=== PATIENT | male | born 1950 | race African-American/Black ===

== ENCOUNTER 2017-12-11 11:00 | Inpatient (IN) | payer OTHER ==
--- NOTE | 2017-12-11 11:23 | PDOC ---
Attending Attestation - [facility] HPI: 12/11/17 12:05 The patient is a 67 year old male coming from [place], with a significant past medical history of hypertension, diabetes, end stage renal disease (dialysis Tuesday,, and Tuesday), and hyperlipidemia, who presents to the emergency department for evaluation of dizziness and right sided numbness. The patient reports a 1 day history of dizziness and right sided facial numbness. The patient describes the right sided facial numbness radiating down to right side of the neck and right arm. He reports an associated symptom of generalized weakness and urinary incontinence. The patient states he felt very unsteady and wobbly going up the stairs yesterday and required his wifes assistance, which prompted him to visit the emergency department today, for further evaluation. He denies any previous experience of the aforementioned dizziness. The patient reports one episode of diarrhea (Tuesday), chills, and positional lightheadedness. Of note, the patient reports having a liter dialyzed with his treatment on Tuesday, and states that he usually has more dialyzed. The patient denies chest pain, focal weakness, shortness of breath, headache, fever, nausea, vomiting, and constipation. Allergies: NKDA. Social History: Former smoker. No reported alcohol or drug use. Surgical History: Tonsillectomy. - Physicial Exam PE: Vitals: Triage Vital signs reviewed General Appearance: no acute distress, well nourished well developed, Head: Atraumatic, normocephalic Eyes: Pupils equal reactive round, extraocular movement intact Neck: Supple. Chest Wall: Nontender Cardiac: Regular rate and rhythm, no murmurs, no rubs, no gallops, Lungs: Clear to auscultation bilateral, good air movement bilaterally, Abdomen: Soft, nondistended, nontender to palpation Extremities: Full range of motion to all extremities, no cyanosis, clubbing, or edema Skin: Warm and dry, no rashes or lesions, no petechiae Neuro: AOX3; Cranial Nerves 2-12 grossly c intact, Strength intact to all extremities, Sensation intact to all extremities. Psych: normal mood, normal affect. - Medical Decision Making The patient is a 67 year old male with a significant past medical history of hypertension, diabetes, end stage renal disease (dialysis Tuesday,, and Tuesday), and hyperlipidemia who presents to the emergency department for evaluation of dizziness and right sided numbness. Plan: Labs ECG Head CT Chest X-Ray UA <Yarelis Torres - Last Filed: 12/11/17 13:53> - Resident Resident Name: Luis Magallon - ED Attending Attestation I have performed the following: I have examined & evaluated the patient, The case was reviewed & discussed with the resident, I agree w/resident's findings & plan, Exceptions are as noted - Medical Decision Making Hypotension with lightheadedness. Status post patient's dialysis on Tuesday he also exhibited diarrhea Differential diagnosis includes hypovolemia secondary to too much fluid being removed during dialysis, volume loss secondary to diarrhea, possible infection Sepsis workup initiated Reevaluation patient with elevated lactic acid differential still remains infection versus volume loss Given the patient is high risk dialysis patient will cover with broad-spectrum antibiotics 500 mL fluid boluses with frequent rechecks of patient's respiratory status. Nephrology has been consult to Limited to medicine for further management. <Shoaib Read - Last Filed: 12/11/17 14:09> Heart Score/ECG Review - ECG Impressions Comment:: 12/11/17 14:08 EKG performed at 1256. Demonstrates normal sinus rhythm 79 bpm. OK 182. QRS 112. QTc 433. No ST elevations no T-wave inversions questionable Q wave in V1 and V2 septal infarct age indeterminate Interpreted by me. <Shoaib Read - Last Filed: 12/11/17 14:09> Attestations - Attestations Documentation prepared by Yarelis Torres, acting as medical doctor md/medical director for Shoaib Read MD. <Yarelis Torres - Last Filed: 12/11/17 13:53>
[2017-12-11] MEDS ORDERED: SODIUM CHLORIDE 500 ML IV STA ×2 (11:45→13:22)
[2017-12-11 12:06] LABS: VENOUS PC02 60.7 mmHg (38-52); VENOUS PH 7.33 (7.32-7.42); VENOUS PO2 19.7 mmHg (28-48)
[2017-12-11 12:08] LABS: BASO % 0.8 % (0-2.0); EOS % 3.2 % (0-4.5); HEMATOCRIT 37.5 % (35.4-49); HEMOGLOBIN 12.3 GM/dL (11.7-16.9); LYMPH % 12.3 % (8-40); MCH 29.9 pg (25.7-33.7); MCHC 32.7 g/dl (32.0-35.9); MEAN CELL VOLUME 91.4 fl (80-96); MEAN PLT VOLUME 7.9 fl (7.5-11.1); MONO % 11.9 % (3.8-10.2); NEUT % 71.8 % (42.8-82.8); PLATELET COUNT 225 K/MM3 (134-434); RDW 19.5 % (11.9-15.9)
--- NOTE | 2017-12-11 12:11 | PDOC ---
History of Present Illness - General Chief Complaint: CVA/TIA Stated Complaint: NUMBNESS Time Seen by Provider: 12/11/17 11:21 History Source: Patient Exam Limitations: No Limitations - History of Present Illness Initial Comments: 12/11/17 12:06 Patient is a 67M with history of DM, CHF, HTN, HLD, ESRD on TThS dialysis here today complaining of weakness and parathesias on the right side of his face, neck, and torso starting 1 day ago. Patient states that his last dialysis was Tuesday because he was planning on being gone for the weekend. He reports episdodes of diarrhea. Denies fevers, chills, nausea, vomiting. Denies abdominal pain, chest pain and shortness of breath. Patient denies any focal weakness. Denies history of prior MIs, but does endorse a history of CHF admission. Patient currently makes no urine. Past History - Past Medical History Allergies/Adverse Reactions: Allergies Allergy/AdvReac Type Severity Reaction Status Date / Time No Known Allergies Allergy Verified 12/11/17 11:06 Home Medications: Ambulatory Orders Aspirin [Aspirin EC] 81 mg PO DAILY 12/11/17 B Complex W-C No.20/Folic Acid [Nephrocaps Softgel] 1 mg PO 12/11/17 Calcium Acetate 667 mg PO TID 12/11/17 Docusate Sodium 100 mg PO BID 12/11/17 Labetalol HCl [Normodyne -] 600 mg PO BID 12/11/17 Lisinopril 10 mg PO 12/11/17 Omeprazole 20 mg PO DAILY 12/11/17 Saxagliptin HCl [Onglyza] 2.5 mg PO DAILY 12/11/17 COPD: No Diabetes: Yes Dialysis: Yes () HTN: Yes Hypercholesterolemia: Yes - Suicide/Smoking/Psychosocial Hx Smoking History: Former smoker Have you smoked in the past 12 months: No Information on smoking cessation initiated: No Review of Systems - Review of Systems Comments:: 12/11/17 12:08 GENERAL/CONSTITUTIONAL: No fever or chills. +weakness. HEAD, EYES, EARS, NOSE AND THROAT: No change in vision. No sore throat. CARDIOVASCULAR: No chest pain or shortness of breath RESPIRATORY: No cough, wheezing, or hemoptysis. GASTROINTESTINAL: No nausea, vomiting, constipation. +diarrhea GENITOURINARY: No dysuria, frequency, or change in urination. MUSCULOSKELETAL: No joint or muscle swelling or pain. No neck or back pain. SKIN: No rash NEUROLOGIC: No headache, vertigo, loss of consciousness, or change in strength/ sensation. ENDOCRINE: No increased thirst. No abnormal weight change HEMATOLOGIC/LYMPHATIC: No anemia, easy bleeding, or history of blood clots. ALLERGIC/IMMUNOLOGIC: No hives or skin allergy. *Physical Exam - Vital Signs Last Vital Signs Temp Pulse Resp BP Pulse Ox 97.9 F 85 19 70/41 97 12/11/17 11:06 12/11/17 11:06 12/11/17 11:12/11/17 11:12/11/17 11:06 - Physical Exam Comments: 12/11/17 12:09 GENERAL: Awake, alert, and fully oriented, in no acute distress HEAD: No signs of trauma, normocephalic, atraumatic EYES: PERRLA, EOMI, sclera anicteric, conjunctiva clear ENT: Auricles normal inspection, hearing grossly normal, nares patent, oropharynx clear without exudates. Moist mucosa NECK: Normal ROM, supple, no lymphadenopathy, JVD, or masses LUNGS: No distress, speaks full sentences, clear to auscultation bilaterally HEART: Regular rate and rhythm, normal S1 and S2, no murmurs, rubs or gallops, peripheral pulses normal and equal bilaterally. ABDOMEN: Soft, nontender, normoactive bowel sounds. No guarding, no rebound. No masses EXTREMITIES: Normal inspection, Normal range of motion, no edema. No clubbing or cyanosis. NEUROLOGICAL: Cranial nerves II through XII grossly intact. Normal speech, no focal sensorimotor deficits SKIN: Warm, Dry, normal turgor, no rashes or lesions noted. ED Treatment Course - LABORATORY CBC & Chemistry Diagram: 12/12/17 07:20 12/12/17 07:20 Medical Decision Making - Medical Decision Making 12/11/17 12:09 Patient is 67M with history of DM, HTN, HLD, ESRD on TThS dialysis, CHF here today with weakness and parathesias. BP 70/40. No signs of fluid overload on exam, patient may be hypovolemic. Also considering occult infection, stroke, [place] , and CHF as etiologies of weakness with hypotension. Septic workup initiated, fingerstick ordered, will also do head CT. 500cc fluid given. 12/11/17 13:31 Laboratory Tests 12/11/17 12/11/17 12/11/17 11:45 11:45 11:45 WBC 6.0 Hgb 12.3 Plt Count 225 BUN 55 H Creatinine 13.5 H* Creat Clearance w eGFR 3.68 Random Glucose 197 H Troponin I < 0.02 CBC normal. BUN/Cr consistent with dialysis. Troponin undetectable. Patient feels a little better. BPs improved to 88/55 systolic. Will give additional 500cc and re-evaluate. Suspect patient is volume down. 12/11/17 13:39 EKG shows normal sinus rhythm with rate of 79. No st elevations/depressions. Normal t wave morphology. Normal intervals Lactate 2.4, will antibiose for possible septicemia. Will admit. *DC/Admit/Observation/Transfer Diagnosis at time of Disposition: Hypotension - Discharge Dispostion Condition at time of disposition: Stable Decision to Admit order: Yes - Referrals - Patient Instructions - Post Discharge Activity
[2017-12-11 12:29] LABS: INR 1.02 (0.82-1.09); PROTHROMBIN TIME (PATIENT) 11.5 SEC (9.7-13.0)
[2017-12-11 12:32] LABS: ACTIVATED PTT 25.1 SECONDS (25.2-36.5)
[2017-12-11 12:38] LABS: ALBUMIN 3.9 g/dl (3.4-5.0); ALK PHOS 73 U/L (45-117); ANION GAP 11 (8-16); BILIRUBIN,TOTAL 0.4 mg/dL (0.2-1.0); BLOOD UREA NITROGEN 55 mg/dL (7-18); CALCIUM 8.5 mg/dL (8.5-10.1); CHLORIDE 94 mmol/L (98-107); CO2 32 mmol/L (21-32); GLUCOSE,RANDOM 197 mg/dL (74-106); POTASSIUM 4.8 mmol/L (3.5-5.1); SGOT/AST 45 U/L (15-37); SGPT/ALT 53 U/L (12-78); SODIUM 137 mmol/L (136-145); TOT PROT 8.3 g/dl (6.4-8.2)
[2017-12-11 12:49] LABS: CREATININE 13.5 mg/dL (0.7-1.3)
[2017-12-11] MEDS ORDERED: PIPERACILLIN/TAZOB 3.375 GM 3.375 GM in DEXTROSE 5%-WATER - 50 ML IVPB ONE (13:45)
[2017-12-11] MEDS ORDERED: PIPERACILLIN/TAZOB 3.375 GM 3.375 GM/50 ML BAG IVPB ONE (13:57)
[2017-12-11] MEDS ORDERED: VANCOMYCIN 1 GRAM (PRE-DOCKED) 1,000 MG/250 ML BAG IVPB ONE (13:57)
[2017-12-11] MEDS: VANCOMYCIN 1,000 MG in DEXTROSE 5%-WATER - 250 ML IVPB SCH (14:05)
--- NOTE | 2017-12-11 16:02 | HP ---
CHIEF COMPLAINT: Unsteady gait PCP: Charlie HISTORY OF PRESENT ILLNESS: 67 year-old male with a significant PMH of HTN, HLD, NIDDM, and ESRD on HD (T, Th, Sat). Patient resides in [place], [place] and came to [place] on Tuesday to attend a wedding. The patient normally has HD on Saturdays but because of his travel plans, he was dialyzed Tuesday morning. 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 Several hours later he had several episodes of diarrhea. On Tuesday morning he ate breakfast at his hotel and when he stood up after eating he felt unsteady on his feet. His had to assist him to get back to the room. He went to the wedding that evening and felt unsteady the entire time. When the symptoms were still present today, patient came to the ED. He was hypotensive on arrival and given IV fluids. Patient states that accompanying his feeling of unsteadiness has been a "sensation" that extends from the right side of his scalp, down the right side of the neck, and extending to the right side of the chest and abdomen. He cannot describe this sensation: it is neither pain nor numbness nor tingling. There is no muscle weakness, dizziness or lightheadedness. He has not experienced vision changes. 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 He cannot recall any bites this growing season. He denies any rashes. He denies joint pain. He did have some pain in his right bicep about 2-3 weeks ago and went to see a health care provider who prescribed gabapentin. Patient states he has not felt right since taking gabapentin. He has felt shaky and anxious on the drug. He takes one dose on HD days, last dose Tuesday night. 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 Smoking: former Alcohol: no Drugs: no Family History: Allergies No Known Allergies Allergy (Verified 12/11/17 11:06) HOME MEDICATIONS: Home Medications Medication Instructions Recorded Aspirin [Aspirin EC] 81 mg PO DAILY 12/11/17 B Complex W-C No.20/Folic Acid 1 mg PO 12/11/17 [Nephrocaps Softgel] Calcium Acetate 667 mg PO TID 12/11/17 Docusate Sodium 100 mg PO BID 12/11/17 Labetalol HCl [Normodyne -] 600 mg PO BID 12/11/17 Lisinopril 10 mg PO 12/11/17 Omeprazole 20 mg PO DAILY 12/11/17 Saxagliptin HCl [Onglyza] 2.5 mg PO DAILY 12/11/17 REVIEW OF SYSTEMS CONSTITUTIONAL: Absent: diaphoresis, malaise, loss of appetite, weight change HEENT: Absent: rhinorrhea, nasal congestion, throat pain, throat swelling, difficulty swallowing, mouth swelling, ear pain, eye pain, visual changes CARDIOVASCULAR: Absent: chest pain, syncope, palpitations, irregular heart rate, lightheadedness , peripheral edema RESPIRATORY: Absent: cough, shortness of breath, dyspnea with exertion, orthopnea, wheezing, stridor, hemoptysis GASTROINTESTINAL: Absent: abdominal pain, abdominal distension, nausea, vomiting, diarrhea, constipation, melena, hematochezia GENITOURINARY: Absent: dysuria, frequency, urgency, hesitancy, hematuria, flank pain, genital pain MUSCULOSKELETAL: Absent: myalgia, arthralgia, joint swelling, back pain, neck pain SKIN: Absent: rash, itching, pallor HEMATOLOGIC/IMMUNOLOGIC: Absent: easy bleeding, easy bruising, lymphadenopathy, frequent infections ENDOCRINE: Absent: unexplained weight gain, unexplained weight loss, heat intolerance, cold intolerance NEUROLOGIC: +unsteady gait; right-sided "sensation" scalp/neck/chest; +shakiness and anxiety since on gabapentin Absent: headache, focal weakness or paresthesias, dizziness, seizure, mental status changes, bladder or bowel incontinence PSYCHIATRIC: Absent: anxiety, depression, suicidal or homicidal ideation, hallucinations. PHYSICAL EXAMINATION Vital Signs - 24 hr 12/11/17 12/11/17 12/11/17 11:06 12:10 13:51 Temperature 97.9 F Pulse Rate 85 Pulse Rate [ 90 80 Right Radial] Respiratory 19 16 Rate Blood Pressure 70/41 Blood Pressure 85/58 97/55 [Right Arm] O2 Sat by Pulse 97 95 Oximetry (%) 12/11/17 15:09 Temperature Pulse Rate Pulse Rate [ 76 Right Radial] Respiratory 16 Rate Blood Pressure Blood Pressure 111/61 [Right Arm] O2 Sat by Pulse 99 Oximetry (%) GENERAL: Awake, alert, and fully oriented, in no acute distress. HEAD: Normal with no signs of trauma. EYES: Pupils equal, round and reactive to light, extraocular movements intact, sclera anicteric, conjunctiva clear. No lid lag. EARS, NOSE, THROAT: Ears normal, nares patent, oropharynx clear without exudates. Moist mucous membranes. NECK: Normal range of motion, supple without lymphadenopathy, JVD, or masses. LUNGS: Breath sounds equal, clear to auscultation bilaterally. No wheezes, and no crackles. No accessory muscle use. HEART: Regular rate and rhythm, normal S1 and S2 without murmur, rub or gallop. ABDOMEN: Soft, nontender, not distended, normoactive bowel sounds, no guarding, no rebound, no masses. No hepatomegaly or splenomegaly. MUSCULOSKELETAL: Normal range of motion at all joints. No bony deformities or tenderness. No CVA tenderness. UPPER EXTREMITIES: 2+ pulses, warm, well-perfused. No cyanosis. No clubbing. No peripheral edema. Left AV fistula covered with bandage. LOWER EXTREMITIES: 2+ pulses, warm, well-perfused. No calf tenderness. No peripheral edema. NEUROLOGICAL: Cranial nerves II-XII intact. No focal deficits. Normal speech. Able to get out of bed unassisted. Slow, cautious gait, feet pointed outward, swaying slightly side to side. PSYCHIATRIC: Cooperative. Good eye contact. Appropriate mood and affect. SKIN: Warm, dry, normal turgor, no rashes or lesions noted, normal capillary refill. Laboratory Results - last 24 hr 12/11/17 12/11/17 12/11/17 11:45 11:45 11:45 WBC 6.0 RBC 4.10 Hgb 12.3 Hct 37.5 MCV 91.4 MCH 29.9 MCHC 32.7 RDW 19.5 H Plt Count 225 MPV 7.9 Absolute Neuts (auto) 4.3 Neutrophils % 71.8 Lymphocytes % 12.3 Monocytes % 11.9 H Eosinophils % 3.2 Basophils % 0.8 Nucleated RBC % 0 PT with INR 11.50 INR 1.02 PTT (Actin FS) 25.1 L VBG pH 7.33 POC VBG pCO2 60.7 H* POC VBG pO2 19.7 L* Mixed VBG HCO3 31.2 H Sodium Potassium Chloride Carbon Dioxide Anion Gap BUN Creatinine Creat Clearance w eGFR Random Glucose Lactic Acid Calcium Total Bilirubin AST ALT Alkaline Phosphatase Troponin I Total Protein Albumin 12/11/17 12/11/17 12/11/17 11:45 11:45 11:45 WBC RBC Hgb Hct MCV MCH MCHC RDW Plt Count MPV Absolute Neuts (auto) Neutrophils % Lymphocytes % Monocytes % Eosinophils % Basophils % Nucleated RBC % PT with INR INR PTT (Actin FS) VBG pH POC VBG pCO2 POC VBG pO2 Mixed VBG HCO3 Sodium 137 Potassium 4.8 Chloride 94 L Carbon Dioxide 32 Anion Gap 11 BUN 55 H Creatinine 13.5 H* Creat Clearance w eGFR 3.68 Random Glucose 197 H Lactic Acid 2.4 H* Calcium 8.5 Total Bilirubin 0.4 AST 45 H ALT 53 Alkaline Phosphatase 73 Troponin I < 0.02 Total Protein 8.3 H Albumin 3.9 Imaging 12/11 CXR: unremarkable 12/11 CT head: unremarkable ASSESSMENT/PLAN: 67 year-old male with a significant PMH of HTN, HLD, NIDDM, and ESRD on HD (T, Th, Sat). Unsteady gait Right-sided paresthesias --CT head unremarkable --send Lyme titer and western blot; start doxy IV BID --possible reaction to gabapentin, hold --neuro consult Diarrhea --self-limited, lasted for several hours after eating street hot dog, no recurrence --stool studies ordered if recurs Hypotension --given 500ccs in ED; cautious to give more fluids because of ESRD --hold home lisinopril Lactic acidosis --resolved after IV fluids ESRD on HD --seen and evaluated by Dr. Samuel who will schedule next session Hyperlipidemia NIDDM --Novolog sliding scale coverage Visit type - Emergency Visit Emergency Visit: Yes ED Registration Date: 12/11/17 Care time: The patient presented to the Emergency Department on the above date and was hospitalized for further evaluation of their emergent condition. - New Patient This patient is new to me today: Yes Date on this admission: 12/15/17 - Critical Care Critical Care patient: No Hospitalist Screening - Colonoscopy Questionnaire Colonoscopy Questionnaire: Colonoscopy Questionnaire - Patient: 50 - 75 years old and never had a screening colonoscopy: Unknown History of colon or rectal polyps, or CA: No History of IBD, Crohn's disease or UC: No History of abdominal radiation therapy as a child: No - Relative: 1 with colon or rectal CA, or polyps at age 60 or younger: Unknown Colon or rectal CA diagnosed at age 45 or younger: Unknown Multiple relatives with colon or rectal CA: Unknown - Outcome: Screening Result: Negative Screen
--- NOTE | 2017-12-11 16:14 | CONSULT ---
Consult Consult Specialty:: Nephrology Reason for Consultation:: ESRD - History of Present Illness Chief Complaint: weakness and diearrhea History of Present Illness: Pt is a 67 year old male with pmhx of ESRD, HTN, DM and HLD who presents to the ER complaining for fatigue and weakness. He says he had diarrhea on Tuesday and has not felt good since. He denies shortness of breath. His last HD was on Tuesday. He is usually on a TTS schedule but is visiting from [place]. He also feels unsteady on his legs. He was found to be hypotensive and he required a few saline boluses. He says he took his bp meds today. He is not sure what the names of his meds are. He also had right sided weakness. - History Source History Provided By: Patient, Medical Record - Past Medical History Cardio/Vascular: Yes: HTN Gastrointestinal: Yes: GERD Renal/: Yes: Renal Inusuff, Hemodialysis Heme/Onc: Yes: Anemia - Smoking History Smoking history: Former smoker Have you smoked in the past 12 months: No Home Medications - Allergies Allergies/Adverse Reactions: Allergies Allergy/AdvReac Type Severity Reaction Status Date / Time No Known Allergies Allergy Verified 12/11/17 11:06 - Home Medications Home Medications: Ambulatory Orders Aspirin [Aspirin EC] 81 mg PO DAILY 12/11/17 B Complex W-C No.20/Folic Acid [Nephrocaps Softgel] 1 mg PO 12/11/17 Calcium Acetate 667 mg PO TID 12/11/17 Docusate Sodium 100 mg PO BID 12/11/17 Labetalol HCl [Normodyne -] 600 mg PO BID 12/11/17 Lisinopril 10 mg PO 12/11/17 Omeprazole 20 mg PO DAILY 12/11/17 Saxagliptin HCl [Onglyza] 2.5 mg PO DAILY 12/11/17 Family Disease History - Family Disease History Family History: Denies Review of Systems - Review of Systems Constitutional: reports: Malaise. denies: Chills, Fever Eyes: reports: No Symptoms HENT: reports: No Symptoms Neck: reports: No Symptoms Cardiovascular: reports: No Symptoms Respiratory: reports: No Symptoms Gastrointestinal: reports: Diarrhea Genitourinary: reports: No Symptoms Musculoskeletal: reports: No Symptoms Integumentary: reports: No Symptoms Neurological: reports: Other (right side weakness) Endocrine: reports: No Symptoms Hematology/Lymphatic: reports: No Symptoms Psychiatric: reports: No Symptoms Physical Exam Vital Signs: Vital Signs Temperature 97.9 F 12/11/17 11:06 Pulse Rate 76 12/11/17 15:09 Respiratory Rate 16 12/11/17 15:09 Blood Pressure 111/61 12/11/17 15:09 O2 Sat by Pulse Oximetry (%) 99 12/11/17 15:09 Constitutional: Yes: Calm Eyes: Yes: Conjunctiva Clear HENT: Yes: Atraumatic Cardiovascular: Yes: S1, S2 Respiratory: Yes: CTA Bilaterally Gastrointestinal: Yes: Soft Renal/: Yes: WNL Edema: No Neurological: Yes: Oriented Psychiatric: Yes: Oriented Labs: CBC, BMP 12/11/17 11:45 12/11/17 11:45 Laboratory Tests 12/11/17 12/11/17 12/11/17 11:45 11:45 11:45 WBC 6.0 Hgb 12.3 Sodium 137 Potassium 4.8 Chloride 94 L Carbon Dioxide 32 Anion Gap 11 Creatinine 13.5 H* Lactic Acid 2.4 H* Imaging - Results Chest X-ray: Report Reviewed Cat Scan: Report Reviewed Assessment/Plan Current Medications Generic Name Dose Route Start Last Admin Trade Name Freq PRN Reason Stop Dose Admin Aspirin 81 mg 12/12/17 10:00 Ecotrin - PO DAILY [facility] Calcium Acetate 667 mg 12/11/17 17:30 Phoslo - PO TIDCM MAYRA Docusate Sodium 100 mg 12/11/17 22:00 Colace - PO BID [facility] Heparin Sodium (Porcine) 5,000 unit 12/11/17 22:00 Heparin - SQ TID MAYRA Vancomycin HCl 1,000 mg/ 250 mls @ 200 mls/hr 12/11/17 13:45 12/11/17 14:05 Dextrose IVPB 200 mls/hr Q24H MAYRA Administration Protocol Insulin Aspart 1 vial 12/11/17 16:30 Novolog Vial Sliding Scale - SQ ACHS [facility] Protocol Labetalol HCl 600 mg 12/11/17 22:00 Normodyne - PO BID MAYRA Lisinopril 10 mg 12/12/17 10:00 Prinivil PO DAILY MAYRA Multivit/Ca Carb/B Cmplx/FA/Prenat 1 tablet 12/12/17 10:00 Nephro-Asuncion - PO DAILY MAYRA Pantoprazole Sodium 40 mg 12/12/17 10:00 Protonix - PO DAILY MAYRA Impression 1. ESRD 2. hx of HTN 3. diarrhea 4. right side weakness 5. DM 6. anemia Plan - hold bp meds as he was hypotensive and required fluids boluses - hold colace as he had diarrhea - neuro eval for weakness - repeat labs in am - will likely dialyze in am - discussed with ER team - will follow Dr Samuel
[2017-12-11] MEDS ORDERED: DOXYCYCLINE HYCLATE 100 MG CAPSULE PO SCH (18:00)
[2017-12-11] MEDS ORDERED: PATIENT'S OWN MEDICATION (NON-FORMULARY) (Calcium Acetate [Calcium Acetate] 667 MG) PO SCH (22:00)
[2017-12-11] MEDS: INSULIN SLIDING SCALE (NOVOLOG) 1 VIAL SQ SCH (22:07)
[2017-12-11] MEDS: CALCIUM ACETATE 667 MG CAPSULE (FP) PO SCH (22:08)
[2017-12-11] MEDS: HEPARIN NA (PORCINE) 5,000 UNITS/ML 1ML VIAL SQ SCH (22:09)
[2017-12-11] MEDS: DOCUSATE SODIUM 100 MG CAPSULE (FP) PO SCH (22:09)
[2017-12-11] MEDS: DOXYCYCLINE INJECTION 100 MG in DEXTROSE 5%-WATER - 100 ML IVPB SCH (22:14)
[2017-12-11] MEDS: LABETALOL HCL 200 MG TABLET (FP) PO SCH (22:14)
[2017-12-11 23:32] VITALS: BMI 30.5
[2017-12-12] MEDS: INSULIN SLIDING SCALE (NOVOLOG) 1 VIAL SQ SCH ×4 (06:05→18:00)
[2017-12-12] MEDS: HEPARIN NA (PORCINE) 5,000 UNITS/ML 1ML VIAL SQ SCH ×2 (06:05→18:18)
[2017-12-12 07:58] LABS: HEMATOCRIT 35.7 % (35.4-49); HEMOGLOBIN 11.6 GM/dL (11.7-16.9); MEAN CELL VOLUME 92.1 fl (80-96); RBC 3.87 M/mm3 (4.00-5.60); WHITE BLOOD COUNT 6.5 K/mm3 (4.0-10.0)
[2017-12-12 07:59] LABS: EOS % 4.3 % (0-4.5); LYMPH % 13.7 % (8-40); MCHC 32.6 g/dl (32.0-35.9); PLATELET COUNT 195 K/MM3 (134-434); RDW 19.4 % (11.9-15.9)
[2017-12-12 08:25] LABS: ALBUMIN 3.6 g/dl (3.4-5.0); ANION GAP 14 (8-16); BILIRUBIN,TOTAL 0.4 mg/dL (0.2-1.0); BLOOD UREA NITROGEN 65 mg/dL (7-18); CHLORIDE 95 mmol/L (98-107); CO2 27 mmol/L (21-32); GLUCOSE,RANDOM 125 mg/dL (74-106); MAGNESIUM 2.4 mg/dL (1.8-2.4); PHOSPHOROUS 8.4 mg/dL (2.5-4.9); POTASSIUM 5.2 mmol/L (3.5-5.1); SGOT/AST 34 U/L (15-37); SGPT/ALT 49 U/L (12-78); SODIUM 136 mmol/L (136-145)
[2017-12-12 08:26] LABS: ALK PHOS 71 U/L (45-117)
[2017-12-12 08:57] LABS: CREATININE 14.7 mg/dL (0.7-1.3)
[2017-12-12] MEDS: CALCIUM ACETATE 667 MG CAPSULE (FP) PO SCH ×3 (09:26→18:18)
[2017-12-12] MEDS: DOCUSATE SODIUM 100 MG CAPSULE (FP) PO SCH (09:27)
[2017-12-12] MEDS: LABETALOL HCL 200 MG TABLET (FP) PO SCH (09:27)
[2017-12-12] MEDS: DOXYCYCLINE INJECTION 100 MG in DEXTROSE 5%-WATER - 100 ML IVPB SCH (09:40)
--- NOTE | 2017-12-12 09:46 | CONSULT ---
Consult - text type - Consultation Consultation Note: Neurology CHIEF COMPLAINT: Unsteady gait HISTORY OF PRESENT ILLNESS: 67 year-old male with a significant PMH of HTN, HLD, NIDDM, and ESRD on HD (T, Th, Sat). Patient resides in [place], [place] and came to [place] on Tuesday to attend a wedding. The patient normally has HD on Saturdays but because of his travel plans, he was dialyzed Tuesday. 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 Several hours later he had several episodes of diarrhea. On Tuesday morning he ate breakfast at his hotel and when he stood up after eating he felt unsteady on his feet. His had to assist him to get back to the room. He went to the wedding that evening and felt unsteady the entire time. When the symptoms were still present occured, patient came to the ED. He was hypotensive on arrival and given IV fluids. There was mention of unclear tingling sensation along R side. Recently started on gabapentin and may be medication induced. CT head reviewed and without acute changes. Doing well this AM and ambulating without difficulty. 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 Smoking: former Alcohol: no Drugs: no Family History: Allergies No Known Allergies Allergy (Verified 12/11/17 11:06) HOME MEDICATIONS: Home Medications Medication Instructions Recorded Aspirin [Aspirin EC] 81 mg PO DAILY 12/11/17 B Complex W-C No.20/Folic Acid 1 mg PO 12/11/17 [Nephrocaps Softgel] Calcium Acetate 667 mg PO TID 12/11/17 Docusate Sodium 100 mg PO BID 12/11/17 Labetalol HCl [Normodyne -] 600 mg PO BID 12/11/17 Lisinopril 10 mg PO 12/11/17 Omeprazole 20 mg PO DAILY 12/11/17 Saxagliptin HCl [Onglyza] 2.5 mg PO DAILY 12/11/17 REVIEW OF SYSTEMS CONSTITUTIONAL: Absent: diaphoresis, malaise, loss of appetite, weight change HEENT: Absent: rhinorrhea, nasal congestion, throat pain, throat swelling, difficulty swallowing, mouth swelling, ear pain, eye pain, visual changes CARDIOVASCULAR: Absent: chest pain, syncope, palpitations, irregular heart rate, lightheadedness , peripheral edema RESPIRATORY: Absent: cough, shortness of breath, dyspnea with exertion, orthopnea, wheezing, stridor, hemoptysis GASTROINTESTINAL: Absent: abdominal pain, abdominal distension, nausea, vomiting, diarrhea, constipation, melena, hematochezia GENITOURINARY: Absent: dysuria, frequency, urgency, hesitancy, hematuria, flank pain, genital pain MUSCULOSKELETAL: Absent: myalgia, arthralgia, joint swelling, back pain, neck pain SKIN: Absent: rash, itching, pallor HEMATOLOGIC/IMMUNOLOGIC: Absent: easy bleeding, easy bruising, lymphadenopathy, frequent infections ENDOCRINE: Absent: unexplained weight gain, unexplained weight loss, heat intolerance, cold intolerance NEUROLOGIC: +unsteady gait; right-sided "sensation" scalp/neck/chest; +shakiness and anxiety since on gabapentin Absent: headache, focal weakness or paresthesias, dizziness, seizure, mental status changes, bladder or bowel incontinence PSYCHIATRIC: Absent: anxiety, depression, suicidal or homicidal ideation, hallucinations. PHYSICAL EXAMINATION Vital Signs Period Temp Pulse Resp BP Sys/Churchill Pulse Ox Last 24 Hr 97.5 F-98.5 F 76-90 16-20 70-112/41-63 95-99 GENERAL: Awake, alert, and fully oriented, in no acute distress. HEAD: Normal with no signs of trauma. EYES: Pupils equal, round and reactive to light, extraocular movements intact, sclera anicteric, conjunctiva clear. No lid lag. EARS, NOSE, THROAT: Ears normal, nares patent, oropharynx clear without exudates. Moist mucous membranes. NECK: Normal range of motion, supple without lymphadenopathy, JVD, or masses. LUNGS: Breath sounds equal, clear to auscultation bilaterally. No wheezes, and no crackles. No accessory muscle use. HEART: Regular rate and rhythm, normal S1 and S2 without murmur, rub or gallop. ABDOMEN: Soft, nontender, not distended, normoactive bowel sounds, no guarding, no rebound, no masses. No hepatomegaly or splenomegaly. MUSCULOSKELETAL: Normal range of motion at all joints. No bony deformities or tenderness. No CVA tenderness. UPPER EXTREMITIES: 2+ pulses, warm, well-perfused. No cyanosis. No clubbing. No peripheral edema. Left AV fistula covered with bandage. LOWER EXTREMITIES: 2+ pulses, warm, well-perfused. No calf tenderness. No peripheral edema. NEUROLOGICAL: Cranial nerves II-XII intact. No focal deficits. Normal speech. Able to get out of bed unassisted. Strength intact, sensory intact. Gait without ataxia PSYCHIATRIC: Cooperative. Good eye contact. Appropriate mood and affect. SKIN: Warm, dry, normal turgor, no rashes or lesions noted, normal capillary refill. Laboratory Results - last 24 hr 12/11/17 12/11/17 12/11/17 11:45 11:45 11:45 WBC 6.0 RBC 4.10 Hgb 12.3 Hct 37.5 MCV 91.4 MCH 29.9 MCHC 32.7 RDW 19.5 H Plt Count 225 MPV 7.9 Absolute Neuts (auto) 4.3 Neutrophils % 71.8 Lymphocytes % 12.3 Monocytes % 11.9 H Eosinophils % 3.2 Basophils % 0.8 Nucleated RBC % 0 PT with INR 11.50 INR 1.02 PTT (Actin FS) 25.1 L VBG pH 7.33 POC VBG pCO2 60.7 H* POC VBG pO2 19.7 L* Mixed VBG HCO3 31.2 H Sodium Potassium Chloride Carbon Dioxide Anion Gap BUN Creatinine Creat Clearance w eGFR Random Glucose Lactic Acid Calcium Total Bilirubin AST ALT Alkaline Phosphatase Troponin I Total Protein Albumin 12/11/17 12/11/17 12/11/17 11:45 11:45 11:45 WBC RBC Hgb Hct MCV MCH MCHC RDW Plt Count MPV Absolute Neuts (auto) Neutrophils % Lymphocytes % Monocytes % Eosinophils % Basophils % Nucleated RBC % PT with INR INR PTT (Actin FS) VBG pH POC VBG pCO2 POC VBG pO2 Mixed VBG HCO3 Sodium 137 Potassium 4.8 Chloride 94 L Carbon Dioxide 32 Anion Gap 11 BUN 55 H Creatinine 13.5 H* Creat Clearance w eGFR 3.68 Random Glucose 197 H Lactic Acid 2.4 H* Calcium 8.5 Total Bilirubin 0.4 AST 45 H ALT 53 Alkaline Phosphatase 73 Troponin I < 0.02 Total Protein 8.3 H Albumin 3.9 Imaging 12/11 CXR: unremarkable 12/11 CT head: unremarkable ASSESSMENT/PLAN: 67 year-old male with a significant PMH of HTN, HLD, NIDDM, and ESRD on HD (T, Th, Sat). Patient resides in [place], [place] and came to [place] on Tuesday to attend a wedding. The patient normally has HD on Saturdays but because of his travel plans, he was dialyzed Tuesday morning. 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 Several hours later he had several episodes of diarrhea. On Tuesday morning he ate breakfast at his hotel and when he stood up after eating he felt unsteady on his feet. His had to assist him to get back to the room. He went to the wedding that evening and felt unsteady the entire time. When the symptoms were still present occured, patient came to the ED. He was hypotensive on arrival and given IV fluids. There was mention of unclear tingling sensation along R side. Recently started on gabapentin and may be medication induced. CT head reviewed and without acute changes. Doing well this AM and ambulating without difficulty. Would recommended holding gabapentin. Increased hydration has helped, possibly 2/2 dehydration. Hold anti-HTn medication for now. Monitor glucose, maintain eugylcemic range. Fall precautions.
[2017-12-12] MEDS ORDERED: ASPIRIN COATED 81 MG TABLET.EC PO SCH (10:00)
[2017-12-12] MEDS ORDERED: PANTOPRAZOLE 40 MG TABLET (FP) PO SCH (10:00)
[2017-12-12] MEDS ORDERED: PATIENT'S OWN MEDICATION (NON-FORMULARY) (Omeprazole 20 MG) PO SCH (10:00)
[2017-12-12] MEDS ORDERED: VITAMIN B COMP W-C 1 EA TABLET PO SCH (10:00)
[2017-12-12] MEDS ORDERED: LISINOPRIL 10 MG TABLET (FP) PO SCH (10:00)
[2017-12-12] MEDS ORDERED: [UNRECOGNIZED DRUG - REMARK] PO SCH (10:00)
[2017-12-12] MEDS ORDERED: SODIUM CHLORIDE 250 ML IV PRN (11:55)
--- NOTE | 2017-12-12 13:32 | DS ---
Physical Exam: SUBJECTIVE: Patient seen and examined OBJECTIVE: Vital Signs Period Temp Pulse Resp BP Sys/Churchill Pulse Ox Last 24 Hr 97.5 F-98.5 F 76-89 16-20 97-112/55-63 95-99 PHYSICAL EXAM GENERAL: The patient is awake, alert, and fully oriented, in no acute distress. HEAD: Normal with no signs of trauma. EYES: PERRL, extraocular movements intact, sclera anicteric, conjunctiva clear. ENT: Ears normal, nares patent, oropharynx clear without exudates, moist mucous membranes. NECK: Trachea midline, full range of motion, supple. LUNGS: Breath sounds equal, clear to auscultation bilaterally, no wheezes, no crackles, no accessory muscle use. HEART: Regular rate and rhythm, S1, S2 without murmur, rub or gallop. ABDOMEN: Soft, nontender, nondistended, normoactive bowel sounds, no guarding, no rebound, no hepatosplenomegaly, no masses. EXTREMITIES: 2+ pulses, warm, well-perfused, no edema. NEUROLOGICAL: Cranial nerves II through XII grossly intact. Normal speech, gait not observed. PSYCH: Normal mood, normal affect. SKIN: Warm, dry, normal turgor, no rashes or lesions noted. LABS Laboratory Results - last 24 hr 12/11/17 12/11/17 12/11/17 11:45 16:20 21:43 WBC RBC Hgb Hct MCV MCH MCHC RDW Plt Count MPV Absolute Neuts (auto) Neutrophils % Lymphocytes % Monocytes % Eosinophils % Basophils % Nucleated RBC % Sodium Potassium Chloride Carbon Dioxide Anion Gap BUN Creatinine Creat Clearance w eGFR POC Glucometer 144 Random Glucose Lactic Acid 2.4 H* 2.0 Calcium Phosphorus Magnesium Total Bilirubin AST ALT Alkaline Phosphatase Total Protein Albumin 12/12/17 12/12/17 12/12/17 06:04 07:20 07:20 WBC 6.5 RBC 3.87 L Hgb 11.6 L Hct 35.7 MCV 92.1 MCH 30.0 MCHC 32.6 RDW 19.4 H Plt Count 195 MPV 8.0 Absolute Neuts (auto) 4.5 Neutrophils % 69.0 Lymphocytes % 13.7 Monocytes % 12.0 H Eosinophils % 4.3 Basophils % 1.0 Nucleated RBC % 0 Sodium 136 Potassium 5.2 H Chloride 95 L Carbon Dioxide 27 Anion Gap 14 BUN 65 H Creatinine 14.7 H* Creat Clearance w eGFR 3.33 POC Glucometer 120 Random Glucose 125 H D Lactic Acid Calcium 8.0 L Phosphorus 8.4 H Magnesium 2.4 Total Bilirubin 0.4 AST 34 D ALT 49 Alkaline Phosphatase 71 Total Protein 8.0 Albumin 3.6 12/12/17 11:03 WBC RBC Hgb Hct MCV MCH MCHC RDW Plt Count MPV Absolute Neuts (auto) Neutrophils % Lymphocytes % Monocytes % Eosinophils % Basophils % Nucleated RBC % Sodium Potassium Chloride Carbon Dioxide Anion Gap BUN Creatinine Creat Clearance w eGFR POC Glucometer 197 Random Glucose Lactic Acid Calcium Phosphorus Magnesium Total Bilirubin AST ALT Alkaline Phosphatase Total Protein Albumin HOSPITAL COURSE: Date of Admission:12/11/17 Date of Discharge: 12/12/17 Minutes to complete discharge: 35 Discharge Summary Reason For Visit: HYPOTENSION Current Active Problems Hypotension (Acute) Condition: Stable - Instructions - Home Medications Comprehensive Discharge Medication List: Ambulatory Orders Aspirin [Aspirin EC] 81 mg PO DAILY 12/11/17 B Complex W-C No.20/Folic Acid [Nephrocaps Softgel] 1 mg PO 12/11/17 Calcium Acetate 667 mg PO TID 12/11/17 Docusate Sodium 100 mg PO BID 12/11/17 Labetalol HCl [Normodyne -] 600 mg PO BID 12/11/17 Lisinopril 10 mg PO 12/11/17 Omeprazole 20 mg PO DAILY 12/11/17 Saxagliptin HCl [Onglyza] 2.5 mg PO DAILY 12/11/17 This patient is new to me today: No Emergency Visit: Yes ED Registration Date: 12/11/17 Care time: The patient presented to the Emergency Department on the above date and was hospitalized for further evaluation of their emergent condition. Critical Care patient: No
--- NOTE | 2017-12-12 15:37 | PN ---
Progress Note, Physician History of Present Illness: Pt seen and examined at bedside. He is awake and alert. He is currently getting HD. He wants to only do 2 and a half hours as he is traveling back to [facility] and has an HD session scheduled for tomorrow in [place]. - Current Medication List Current Medications: Active Medications Aspirin (Ecotrin -) 81 mg PO DAILY [facility] Last Admin: 12/12/17 09:27 Dose: 81 mg Calcium Acetate (Phoslo -) 667 mg PO TIDCM [facility] Last Admin: 12/12/17 11:06 Dose: 667 mg Docusate Sodium (Colace -) 100 mg PO BID [facility] Last Admin: 12/12/17 09:27 Dose: Not Given Heparin Sodium (Porcine) (Heparin -) 5,000 unit SQ TID [facility] Last Admin: 12/12/17 06:05 Dose: 5,000 unit Vancomycin HCl 1,000 mg/ (Dextrose) 250 mls @ 200 mls/hr IVPB Q24H [facility]; Protocol Last Admin: 12/11/17 14:05 Dose: 200 mls/hr Doxycycline Hyclate 100 mg/ (Dextrose) 100 mls @ 50 mls/hr IVPB BID [facility] Last Admin: 12/12/17 09:40 Dose: 50 mls/hr Sodium Chloride (Normal Saline -) 250 mls @ 3,000 mls/hr IV PRN PRN PRN Reason: Hypotension during Dialysis Stop: 12/13/17 11:55 Insulin Aspart (Novolog Vial Sliding Scale -) 1 vial SQ ACHS [facility]; Protocol Last Admin: 12/12/17 11:06 Dose: 2 units Labetalol HCl (Normodyne -) 600 mg PO BID [facility] Last Admin: 12/12/17 09:27 Dose: Not Given Multivit/Ca Carb/B Cmplx/FA/Prenat (Nephro-Asuncion -) 1 tablet PO DAILY [facility] Last Admin: 12/12/17 09:26 Dose: 1 tablet Pantoprazole Sodium (Protonix -) 40 mg PO DAILY [facility] Last Admin: 12/12/17 09:27 Dose: 40 mg - Objective Vital Signs: Vital Signs Temperature 97.7 F 12/12/17 14:49 Pulse Rate 80 12/12/17 15:10 Respiratory Rate 20 12/12/17 15:10 Blood Pressure 120/69 12/12/17 15:10 O2 Sat by Pulse Oximetry (%) 95 12/11/17 19:30 Constitutional: Yes: Calm Eyes: Yes: Conjunctiva Clear HENT: Yes: Atraumatic Cardiovascular: Yes: S1, S2 Respiratory: Yes: CTA Bilaterally Gastrointestinal: Yes: Normal Bowel Sounds, Soft Genitourinary: Yes: WNL Musculoskeletal: Yes: WNL Edema: Yes Edema: LLE: 1+, RLE: 1+ Neurological: Yes: Oriented Psychiatric: Yes: Oriented Labs: CBC, BMP 12/12/17 07:20 12/12/17 07:20 INR, PTT INR 1.02 (0.82-1.09) 12/11/17 11:45 Problem List - Problems (1) ESRD (end stage renal disease) Code(s): N18.6 - END STAGE RENAL DISEASE Assessment/Plan Current Medications Generic Name Dose Route Start Last Admin Trade Name Freq PRN Reason Stop Dose Admin Aspirin 81 mg 12/12/17 10:00 12/12/17 09:27 Ecotrin - PO 81 mg DAILY [facility] Administration Calcium Acetate 667 mg 12/11/17 17:30 12/12/17 11:06 Phoslo - PO 667 mg TIDCM [facility]RA Administration Docusate Sodium 100 mg 12/11/17 22:00 12/12/17 09:27 Colace - PO Not Given BID [facility]RA Heparin Sodium (Porcine) 5,000 unit 12/11/17 22:00 12/12/17 06:05 Heparin - SQ 5,000 unit TID [facility]RA Administration Vancomycin HCl 1,000 mg/ 250 mls @ 200 mls/hr 12/11/17 13:45 12/11/17 14:05 Dextrose IVPB 200 mls/hr Q24H MAYRA Administration Protocol Doxycycline Hyclate 100 mg/ 100 mls @ 50 mls/hr 12/11/17 22:00 12/12/17 09:40 Dextrose IVPB 50 mls/hr BID MAYRA Administration Sodium Chloride 250 mls @ 3,000 mls/hr 12/12/17 11:55 Normal Saline - IV 12/13/17 11:55 PRN PRN Hypotension during Dialysis Insulin Aspart 1 vial 12/11/17 16:30 12/12/17 11:06 Novolog Vial Sliding Scale - SQ 2 units ACHS MAYRA Administration Protocol Labetalol HCl 600 mg 12/11/17 22:00 06/25/18 09:27 Normodyne - PO Not Given BID MAYRA Multivit/Ca Carb/B Cmplx/FA/Prenat 1 tablet 12/12/17 10:00 12/12/17 09:26 Nephro-Asuncion - PO 1 tablet DAILY [facility] Administration Pantoprazole Sodium 40 mg 12/12/17 10:00 12/12/17 09:27 Protonix - PO 40 mg DAILY [facility] Administration Impression 1. ESRD 2. hx of HTN 3. diarrhea 4. right side weakness 5. DM 6. anemia Plan - HD today - monitor blood pressure - pt wants only 2 and half hours today - pt evaluated by neuro - discussed with medical team earlier - will follow Dr Samuel
--- NOTE | 2017-12-12 17:27 | EKG ---
Test Reason : Blood Pressure : / mmHG Vent. Rate : 079 BPM Atrial Rate : 079 BPM P-R Int : 182 ms QRS Dur : 112 ms QT Int : 378 ms P-R-T Axes : 071 -23 043 degrees QTc Int : 433 ms NORMAL SINUS RHYTHM SEPTAL INFARCT , AGE UNDETERMINED ABNORMAL ECG NO PREVIOUS ECGS AVAILABLE Confirmed by AMINA KUHN MD ([id number]) on 12/12/2017 5:27:21 PM Referred By: Confirmed By:AMINA KUHN MD
[2017-12-12 17:40] VITALS: BP 126/64; PULSE 82; TEMP 97.5
[2017-12-12] MEDS: VANCOMYCIN 1,000 MG in DEXTROSE 5%-WATER - 250 ML IVPB SCH (18:17)
== END 2017-12-12 19:09 | disposition home or self-care (01) | DRG 312 ==
LOC: JER 11:00 → JERBED 13:54 → J7W 12-12 00:42
PROVIDERS: ADMIT Internal Medicine; ATTEND Nurse Practitioner Acute Care
PROC: 5A1D90Z Performance of Urinary Filtration, Continuous, Greater than 18 hours Per Day (ICD-10-PCS; principal; 2017-12-12)
DX: I95.2 Hypotension due to drugs (principal); N18.6 End stage renal disease; E87.2 Acidosis; I12.0 Hypertensive chronic kidney disease with stage 5 chronic kidney disease or end stage renal disease; R26.81 Unsteadiness on feet; E11.22 Type 2 diabetes mellitus with diabetic chronic kidney disease; Z99.2 Dependence on renal dialysis; E78.5 Hyperlipidemia, unspecified; R19.7 Diarrhea, unspecified; D64.9 Anemia, unspecified; R20.2 Paresthesia of skin; R53.1 Weakness
CPT/HCPCS: 36415; 70450-TC; 71045-TC-FY; 80048; 80053; 82803; 82962; 83605; 83735; 84100; 84484; 85025; 85610; 85730; 87040; 87045; 87046; 87177; 87209; 87324; 87449; 93005; 93010; 99285-25; J1644